=== PATIENT | female | born 1980 | race Caucasian/White ===

== ENCOUNTER → 2023-08-22 | Outpatient (CLI) | payer BC, OTHER ==
[~2023-08-22] MED LIST: LIDOCAINE 1% INJ 10 ML VIAL INJ ONE; LIDOCAINE 1% INJ 10 ML VIAL ONE
--- NOTE | 2023-08-22 12:05 | Diagnostic Imaging Report ---
Indication: Left breast nodules. The patient presents for ultrasound-guided biopsy. The patient was brought to the sonographic suite, placed on table in the supine position. Ultrasound imaging of the left breast was performed. Multiple anechoic circumscribed lesions are identified in the 1:00 and 2:00 location of the left breast, the largest at the 1:00 measuring approximately 7 mm in size. Smaller cyst at the 2:00 locations approximately 5 mm in size. No solid breast mass is identified. The previously noted area of irregularity at the 2:00 location of the left breast on outside ultrasound from [place] is not appreciated on today's study. No concerning sonographic finding is identified on today's study. Therefore, biopsy was not performed. IMPRESSION: BI-RADS Category 3 No concerning sonographic findings were identified when the patient presented today for a biopsy. Only benign cysts at the 1:00 and 2:00 location of the left breast could be seen. No solid mass or areas of tissue heterogeneity or architectural distortion was visualized. Findings were discussed with the patient. It was decided to not undergo biopsy at this time. Follow-up left breast ultrasound in 6 months is recommended to show continued stability. Dictated by: Dictated on workstation # [id number]
== END ==
LOC: RAD 10:30
PROVIDERS: ATTEND Nurse Practitioner Women's Health
DX: N63.21 Unspecified lump in the left breast, upper outer quadrant (principal)